=== PATIENT | male | born 2000 | race Caucasian/White ===

== ENCOUNTER → 2018-09-21 | Outpatient (CLI) | payer OTHER ==
[~2018-09-21] MED LIST: 0.9 % SODIUM CHLORIDE 10 ML DISP.SYRIN. ID ONE; GADOBUTROL 7.5 MMOL/7.5 ML VIAL INT ART ONE; IOHEXOL 300 MG/ML 50 ML VIAL. INT ART ONE; LIDOCAINE 1% Multi-Dose 20 ML VIAL. ID ONE
--- NOTE | 2018-09-21 16:33 | KCIC ---
MR arthrogram of the right shoulder Indication: Right shoulder pain with certain movements, since spur2017 Technique: Intra-articular contrast injected into the glenohumeral joint and is reported separately. Routine 4 plane sequences were obtained, including ABER positioning. FINDINGS: Artifact: No significant image degradation. Acromioclavicular joint: Mild hypertrophic changes. Very mild associated edema. This could be degenerative, or related to mild repetitive stress injury. Rotator cuff: * Supraspinatus-infraspinatus tendon: Intact * Subscapularis tendon: Intact * Muscle bulk: Within normal limits * Subacromial subdeltoid bursa: No significant fluid or contrast accumulation. Articular cartilage: No acute cartilage defect or advanced DJD. Labrum: No evidence of labral tear or para labral cyst Biceps tendon: Intact Bones: No lesion or acute fracture. Soft tissue: No acute findings. Impression: 1. Mild degenerative change or repetitive stress injury at acromioclavicular joint. No joint separation 2. No evidence of labral tear or other internal derangement. Electronically signed by: Bruno Eaton MD (09/21/2018 4:30 PM) [id number]
--- NOTE | 2018-09-21 17:48 | KCIC ---
PROCEDURE: Right shoulder injection using fluoroscopic guidance, prior to MR. HISTORY: Shoulder pain. TECHNIQUE: The procedure was explained to the patient as were potential risks, including among others infection, bleeding or allergic reaction. All questions were answered. Informed written and verbal consent was obtained. The shoulder was prepped and draped in the usual sterile manner. Following administration of local anesthetic, a 22-gauge needle was advanced into the anterior shoulder. Following negative aspiration, 12 cc of a solution of 5cc Omnipaque-300 contrast, 5 cc 1% lidocaine, 10 cc normal saline, and 0.1 cc gadolinium was injected without difficulty. The needle was removed. There was good hemostasis at the injection site. The patient left in stable condition without immediate complication. A single spot image is obtained. FLUOROSCOPY TIME:?19 seconds Electronically signed by: Bruno Eaton MD (09/21/2018 5:45 PM) [email or web address]
== END | disposition home or self-care (01) ==
LOC: KCIC 14:02
PROVIDERS: ATTEND Orthopaedic Surgery
DX: M25.511 Pain in right shoulder (principal); R60.0 Localized edema
CPT/HCPCS: 73040; 73222; A9585; Q9967